=== PATIENT | female | born 1995 | race Two or more races ===

== ENCOUNTER 2017-05-14 10:35 | Emergency (ER) | payer SELFPAY ==
[~2017-05-14] VITALS: Ht 165.1 cm; Wt 120.2 kg
[2017-05-14 10:46] VITALS: BP 129/82
== END 2017-05-14 11:54 | disposition left against medical advice (07) ==
LOC: ER 10:44
DX: S09.93XA Unspecified injury of face, initial encounter (principal); Z53.21 Procedure and treatment not carried out due to patient leaving prior to being seen by health care provider; W22.8XXA Striking against or struck by other objects, initial encounter; Y93.89 Activity, other specified; Y99.8 Other external cause status; Y92.89 Other specified places as the place of occurrence of the external cause